=== PATIENT | male | born 1980 | race Caucasian/White ===

== ENCOUNTER 2018-09-09 20:02 | Inpatient (IN) | payer OTHER | END 2018-09-12 20:42 | disposition home or self-care (01) | LOC: TELE-CENTR 20:02 | DX: J18.9 Pneumonia, unspecified organism (principal); K21.9 Gastro-esophageal reflux disease without esophagitis; E66.9 Obesity, unspecified; Z68.33 Body mass index [BMI] 33.0-33.9, adult ==